=== PATIENT | female | born 1935 | race Caucasian/White ===

== ENCOUNTER 2020-10-07 08:17 | Day surgery (SDC) | payer OTHER ==
[~2020-10-07 08:17] MED LIST: ATORVASTATIN CA40 MG PO; COZAAR100 MG PO; COZAAR50 MG PO; ELIQUIS2.5 MG PO; LANOXIN0.25 MG PO; PERCOCET 5/3251 TAB PO; XARELTO 10MG PO; ZIAC 2.5-6.251 EACH PO; [UNRECOGNIZED DRUG - OTHER] PO
== END 2020-10-07 22:15 | disposition home or self-care (01) ==
LOC: CIR.AMB 08:17
PROVIDERS: ATTEND Orthopaedic Surgery Hand Surgery
DX: S52.531A Colles' fracture of right radius, initial encounter for closed fracture (principal); Z20.822 Contact with and (suspected) exposure to COVID-19
CPT/HCPCS: 25609; 25118; 25280; C1776